=== PATIENT | male | born 1975 | race Caucasian/White ===

== ENCOUNTER 2017-04-06 21:38 | Emergency (ER) | payer SELFPAY ==
--- NOTE | 2017-04-07 19:12 | ER ---
ADMIT: 04/06/2017 RM/LOC: ER [facility] MR#: [id number] [address] BALJIT DANIEL J [address] [place] [address] Emergency Room Report SEX: M AGE: 42 : 1975 DATE: 04/06/2017 HISTORY OF PRESENT ILLNESS: The patient is a 42-year-old male, allegedly, with past medical history of high blood pressure, for which he is not taking any medications, came to the ER with chief complaint of right abdominal pain which goes to the right shoulder. The patient states pain started while he was working, lifting some light objects and denies similar pain in the past and states that the pain is more like generalized bruising and denies any sharpness. Pain is mild. The patient also states that he has high blood pressure at home, which per patient was systolic of 150s. In the ER, the patient had blood pressure of 130/85, the patient's pulse was in 80s, and O2 saturation 100% on room air, and respiratory rate was 18. The patient was in no pain or distress, sitting on the bed, answering the questions. Mother was at the bedside. Per chart, the patient has a history of drug abuse allegedly. The patient denies any trauma, any chest pain or shortness of breath and states he has some headache, which is mostly on the back of the head and it is very usual for him to have the similar headache before. Headache is moderate and he denies any photophobia, nausea, vomiting, or neck stiffness. PHYSICAL EXAMINATION: HEENT/NECK: The patient had soft neck, no meningismus, jolt test was negative. Pupils were 3 mm, reactive to light bilaterally with normal extraocular movements. NEURO: Grossly normal. The patient had no hallucination, delusion, suicidal or homicidal ideations. CHEST: Clear. HEART: Normal heart sounds. ABDOMEN: Soft. BACK: The patient had no midline tenderness in the back. The patient had no CVA tenderness. The rest of the physical exam was noncontributory and normal. ADMIT: 04/06/2017 RM/LOC: ER [facility] MR#: [id number] [address] DANIEL SMILEY [address] [place] [address] Emergency Room Report SEX: M AGE: 42 : 1975 LABORATORY DATA: Lab work was remarkable for creatinine of 1.6, with normal BUN. Previous creatinine has always been in the range of 1.2- 1.1, 5 to 6 years ago. The patient has no close followups. The patient is in no pain or distress. The necessity of followups with the primary doctor for possible chronic kidney changes was discussed with the patient, the patient and mother agreed to call for an appointment this week. The patient is stable. The result of the lab work was printed and was given to the patient upon discharge. The patient is stable to be discharged to home and needs to be followed up closely by the primary doctor for questionable chronic kidney changes/kidney function. Compa Persaud MD/ blanche JOB #: [id number] CC: Compa Persaud MD, Attending Physician Lee Recinos MD, Family Physician
== END 2017-04-07 00:10 | disposition home or self-care (01) ==
LOC: ER 21:38
DX: R10.9 Unspecified abdominal pain (principal); I12.9 Hypertensive chronic kidney disease with stage 1 through stage 4 chronic kidney disease, or unspecified chronic kidney disease; N18.9 Chronic kidney disease, unspecified